=== PATIENT | male | born 1995 | race Two or more races ===

== ENCOUNTER 2018-08-28 20:38 | Emergency (ER) | payer OTHER ==
[~2018-08-28] VITALS: Ht 170.2 cm; Wt 68.0 kg
[2018-08-28 21:07] VITALS: BP 140/68
[2018-08-28] MEDS ORDERED: ACETAMINOPHEN ES 500 MG TABLET ONE (21:28)
[2018-08-28] MEDS ORDERED: ACETAMINOPHEN ES 500 MG TABLET PO ONE (21:30)
--- NOTE | 2018-08-28 21:37 | NUR ---
[facility]. Written and verbal after care instructions given. Patient verbalizes understanding of instructions.
== END 2018-08-28 21:41 ==
LOC: ER 20:40
DX: S00.33XA Contusion of nose, initial encounter (principal); V49.49XA Driver injured in collision with other motor vehicles in traffic accident, initial encounter; Y93.89 Activity, other specified; Y92.413 State road as the place of occurrence of the external cause; Y99.8 Other external cause status
CPT/HCPCS: 99283; A4606; Z7610